=== PATIENT | male | born 1990 | race African-American/Black ===

== ENCOUNTER 2018-07-18 00:55 | Emergency (ER) | payer OTHER ==
[~2018-07-18] VITALS: Ht 177.8 cm; Wt 86.2 kg
--- NOTE | 2018-07-18 01:30 | NUR ---
Pt. ambulated into ED w/ c/o coughing, congestion overnight, states he has asthma and has not been using his medication,
[2018-07-18] MEDS ORDERED: IPRATROPIUM BROMIDE 0.5 MG/2.5 ML NEBU ONE (01:51)
[2018-07-18] MEDS ORDERED: ALBUTEROL SULFATE 2.5 MG/3 ML NEBU ONE (01:51)
[2018-07-18] MEDS ORDERED: IPRATROPIUM BROMIDE 0.5 MG/2.5 ML NEBU NEB ONE (02:00)
[2018-07-18] MEDS ORDERED: ALBUTEROL SULFATE 2.5 MG/3 ML NEBU NEB ONE (02:00)
--- NOTE | 2018-07-18 02:34 | NUR ---
Patient discharged to home in stable conditon. Written and verbal after care instructions given. Patient verbalizes understanding of instructions. Pt. 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
== END 2018-07-18 02:37 | disposition home or self-care (01) ==
LOC: ER 00:57
DX: B34.9 Viral infection, unspecified (principal); J45.909 Unspecified asthma, uncomplicated
CPT/HCPCS: A4663; J3590